=== PATIENT | male | born 1960 | race Caucasian/White ===

== ENCOUNTER 2017-10-04 15:29 | Inpatient (IN) ==
--- NOTE | 2017-10-04 15:44 | Emergency Department Note ---
Disposition Clinical Impression: NSTEMI (non-ST elevated myocardial infarction) Chest pain Qualifiers: Chest pain type: unspecified Qualified Code(s): R07.9 - Chest pain, unspecified Disposition: Admitted As Inpatient Condition: Good [facility] Provider[facility] - Forms: ED Satisfaction Letter Time of Disposition: 17:06 Chest Pain HPI - General Chief Complaint: ED Chest Pain Stated Complaint: chest pain Time Seen by Provider: 10/04/17 15:29 Source: patient, EMS Mode of arrival: EMS Limitations: no limitations Vital Signs Reviewed: Yes Nursing Notes Reviewed: Yes - History of Present Illness HPI Narrative: 56-year-old male history of smoking, pre-hypertension and diet control diabetes mellitus presents an emergency department via EMS as a transfer from the [facility] for chest pain and elevated troponin. His troponin was 0.209. His pain was relieved after a total of 2 nitro and for aspirin. Currently he is chest pain free. His symptoms started at 6 o'clock this morning as he is getting ready for work he reports a heaviness to the midsternal no radiation. A gradually worsened throughout the day. Rested not make it better. He initially thought it was indigestion needed to burp but it would return. He denies any shortness of breath, diaphoresis, nausea or vomiting. Denies any recent illness. No prior history of cardiac ischemic disease. His mother had a [place] at the age of 60. No history of cancer recent long-distance travel or history of blood clot. D dimer was performed at the [facility] that was normal 0.2 within their normal limits. EKG performed did not show acute ischemic findings. At this time will repeat a troponin and admit for NSTEMI. He denies any G.I. bleed symptoms. Pt complaint: chest pain Severity scale (1-10): 0 - Related Data Home Medications Medication Instructions Recorded Confirmed No Known Home Drugs 10/04/17 10/04/17 Allergies Allergy/AdvReac Type Severity Reaction Status Date / Time No Known Allergies Allergy Verified 10/04/17 15:29 All systems ED: reviewed and negative except as stated. Review of Systems: As Per HPI Constitutional: Denies: fever, chills, weakness Cardiovascular: Reports: chest pain Respiratory: Denies: dyspnea Gastrointestinal: Denies: abdominal pain, nausea, vomiting Musculoskeletal: Denies: back pain, neck pain Neurological: Denies: headache Chest Pain PMH - Past Medical History Medical history: Reports: diabetes Psychiatric history: Reports: no psych history - Social History Smoking Status: Current every day smoker Alcohol use: Reports: none Drug use: Reports: none Physical Exam - General Limitations: no limitations General appearance: alert, in no apparent distress, obese - Head Head exam: atraumatic, normocephalic, normal inspection - Eye Eye exam: Present: normal appearance, PERRL, EOMI - ENT ENT exam: normal exam, normal oropharynx, mucous membranes moist - Neck Neck exam: Present: normal inspection, full ROM, trachea midline - Chest Chest inspection: Present: normal inspection, symmetric chest wall rise - Respiratory Respiratory exam: Present: normal lung sounds bilaterally - Cardiovascular Cardiovascular exam: Present: regular rate, normal rhythm, normal heart sounds. Absent: systolic murmur, diastolic murmur - Expanded Cardiovascular Exam Peripheral pulses: 2+: radial (R), radial (L) - Abdominal Exam Abdominal exam: Present: soft, Non-Tender, normal bowel sounds. Absent: tenderness, distention, guarding, rebound, rigidity - Extremities Exam Extremities exam: Present: normal inspection, full ROM, normal capillary refill. Absent: tenderness, pedal edema, calf tenderness - Back Exam Back exam: Present: normal inspection, full ROM. Absent: tenderness - Neurological Exam Neurological exam: Present: alert, oriented X3, normal gait - Psychiatric Psychiatric exam: Present: normal affect, normal mood - Skin Skin exam: Present: warm, dry, intact, normal color Course Course Narrative: Patient presents [facility] concern [facility] D dimer was performed 0.2O within normal limits, low risk Wells Score 0. A repeat troponin performed here elevated 0.12. EKG performed did not show any ST elevation or depression. No acute ischemic changes. He will be admitted to the hospitalist and initiated on heparin. He denies any G.I. bleed symptoms. - Consultations Consultation #1: Spoke with on-call hospitalist igor Berry to admit for NSTEMI. No further orders at this time Time: 17:06 Vital Signs Temperature 97.9 F 10/04/17 15:30 Pulse Rate 77 10/04/17 15:30 Respiratory Rate 18 10/04/17 15:30 Blood Pressure 155/97 10/04/17 15:30 O2 Sat by Pulse Oximetry 97 10/04/17 15:30 Temperature 97.9 F 10/04/17 15:30 Pulse Rate 68 10/04/17 16:31 Respiratory Rate 16 10/04/17 16:31 Blood Pressure 157/82 10/04/17 16:31 O2 Sat by Pulse Oximetry 96 10/04/17 16:31 Oxygen Delivery Oxygen Delivery Room Air Chest Pain - MDM Narrative Medical decision making narrative: Patient was discussed with my attending physician who agrees with ED management and final disposition. They independently evaluated the patient. Please refer to their attestation to this encounter for additional information. This note was generated by [employer] voice recognition software and as a result grammatical or spelling errors may occur using this program. - Medical Records Medical records reviewed: Yes I reviewed the patient's medical records. - Lab Data Lab results reviewed: Yes I reviewed the patient's lab results. Lab Results 10/04/17 Range/Units 15:50 Troponin I 0.12 H* (< 0.04) ng/mL - EKG Data EKG attestation: Yes I reviewed and interpreted this EKG. EKG results narrative: EKG performed 1331 normal sinus rhythm 67 beats per minute, normal axis, good R wave progression, no ST elevation or depression, intervals within normal limits. Compared to prior EKG performed 09/09/2013 shows similar consistent findings. No acute ischemic changes. Heart Score - Score History: Slightly Suspicious EKG: Normal Age: 45-65 Risk Factors: Equal/Greater than 3 risk factor or history of atherosclerotic disease Troponin: Greater than 3x normal limit HEART Score Total: 5
[2017-10-04] MEDS ORDERED: *HR* Heparin 5,000 UNIT/ML VIAL IVP ONE (16:32)
[2017-10-04] MEDS ORDERED: *HR* Heparin 5,000 UNIT/ML VIAL IVP PRN (16:32)
[2017-10-04] MEDS ORDERED: Heparin 25,000 UNIT/500 ML D5W 25,000 UNIT/500 ML BAG IVC SCH (16:45)
[2017-10-04 17:04] LABS: Hemoglobin 17.6 g/dL (12.9-16.9); Mean Corpuscular HGB Conc 36.7 g/dL (31.6-35.5); Mean Corpuscular Hemoglobin 31.9 pg (28.0-33.3); Mean Platelet Volume 9.6 fL (9.4-12.4); Platelet Count 175 K/mcL (140-400); Red Blood Count 5.52 M/mcL (4.19-5.50); Red Cell Distribution Width 11.9 % (11.5-14.5)
[2017-10-04 17:37] LABS: Heparin anti-factor XA UFH 0.02 IU/mL (0.30-0.70)
[2017-10-04 17:38] LABS: Prothrombin Time 11.5 Seconds (9.4-12.1)
--- NOTE | 2017-10-04 17:52 | Emergency Department Note ---
Disposition Clinical Impression: NSTEMI (non-ST elevated myocardial infarction) Chest pain Qualifiers: Chest pain type: unspecified Qualified Code(s): R07.9 - Chest pain, unspecified Disposition: Admitted As Inpatient Condition: Good General Adult HPI - General Chief complaint: ED Chest Pain Stated complaint: chest pain Time Seen by Provider: 10/04/17 15:29 Source: patient, EMS Mode of arrival: EMS Limitations: no limitations - History of Present Illness Pain Scale: 0 - Related Data Home Medications Medication Instructions Recorded Confirmed No Known Home Drugs 10/04/17 10/04/17 Allergies Allergy/AdvReac Type Severity Reaction Status Date / Time No Known Allergies Allergy Verified 10/04/17 15:29 Constitutional: Denies: fever, chills, weakness Cardiovascular: Reports: chest pain Respiratory: Denies: dyspnea Gastrointestinal: Denies: abdominal pain, nausea, vomiting Musculoskeletal: Denies: back pain, neck pain Neurological: Denies: headache Past Medical History - Past Medical History Medical history: Reports: diabetes Psychiatric history: Reports: no psych history - Social History Smoking Status: Current every day smoker Smokeless Tobacco Status: No Alcohol use: Reports: none Drug use: Reports: none Physical Exam - General Limitations: no limitations General appearance: alert, in no apparent distress, obese Course Vital Signs Temperature 97.9 F 10/04/17 15:30 Pulse Rate 77 10/04/17 15:30 Respiratory Rate 18 10/04/17 15:30 Blood Pressure 155/97 10/04/17 15:30 O2 Sat by Pulse Oximetry 97 10/04/17 15:30 Temperature 97.9 F 10/04/17 15:30 Pulse Rate 63 10/04/17 17:49 Respiratory Rate 18 10/04/17 17:49 Blood Pressure 136/91 10/04/17 17:49 O2 Sat by Pulse Oximetry 97 10/04/17 17:49 Oxygen Delivery Oxygen Delivery Room Air Medical Decision Making - Lab Data Result diagrams: 10/04/17 15:50 Lab Results 10/04/17 10/04/17 10/04/17 Range/Units 15:50 15:50 15:50 WBC 12.9 H (4.3-11.1) K/mcL RBC 5.52 H (4.19-5.50) M/mcL Hgb 17.6 H (12.9-16.9) g/dL Hct 48.0 (37.5-50.1) % MCV 87.0 (83.0-100.0) fL MCH 31.9 (28.0-33.3) pg MCHC 36.7 H (31.6-35.5) g/dL RDW 11.9 (11.5-14.5) % Plt Count 175 (140-400) K/mcL MPV 9.6 (9.4-12.4) fL PT 11.5 (9.4-12.1) Seconds INR 1.0 Heparin Anti-Xa, Unfract 0.02 L (0.30-0.70) IU/mL Troponin I 0.12 H* (< 0.04) ng/mL Attestation Statement - Attestation Attestation: I examined this patient and my medical decision-making was reviewed with the Resident Physician. I agree with the documented findings, disposition and treatment plan as described except to the extent set forth below. 56 year old male presents to the ED with complaints of chest pain that now has resolved and [facility] and likle NSTEMI. we have repeated labs here today and it appears that he does have an elevated troponin. WE will start heparin therpy now and admit to medicine
[2017-10-04] MEDS ORDERED: Naloxone 0.4 MG/ML INJ IVP PRN ×2 (18:04→18:11)
--- NOTE | 2017-10-04 18:16 | Internal Med History&Physical ---
<Arlette Carver O - Last Filed: 10/04/17 20:34> Date of Encounter: 10/04/17 Internal Medicine - H&P: HPI History of present illness: Mr. Moran is a 56 year old male Internal Medicine - H&P: Meds No Known Home Drugs 10/04/17 [History] 3 Allergy/AdvReac Type Severity Reaction Status Date / Time No Known Allergies Allergy Verified 10/04/17 15:29 All Systems PM: A 10-system review of systems was performed and is negative for pertinent findings except as documented above in the HPI. - Constitutional Vitals: Temp Pulse Resp BP Pulse Ox 97.9 F 63 16 148/84 96 10/04/17 15:30 10/04/17 20:30 10/04/17 20:01 10/04/17 20:30 10/04/17 20:12 - Head Head exam: Present: atraumatic, normocephalic - Eye Eye exam: Present: PERRL, conjuntiva pink, sclera anicteric Pupils: Present: PERRL - Neck Neck exam general surgery: Present: supple, trachea midline. Absent: lymphadenopathy - Respiratory Respiratory exam: Present: CTAB. Absent: accessory muscle use, rales, rhonchi, wheezes - Cardiovascular Cardiovascular exam: Present: RRR, +S1, +S2. Absent: diastolic murmur, gallop, rubs, systolic murmur - GI/Abdominal GI/Abdominal exam: Present: normal bowel sounds, soft, no peritoneal signs. Absent: distended, tenderness - Extremities Exam Extremities exam: Present: warm, radial pulses palpable and symmetrical. Absent : calf tenderness, cyanotic, pedal edema - Neurological Exam Neurological exam: Present: CN II-XII intact, oriented X3, no focal deficits. Absent: pronater drift, facial droop, speech deficit - Skin Skin exam: Present: dry, intact Internal Med - H&P Results - Labs CBC & Chem 7: 10/04/17 15:50 - Attending Attestation I performed a history and physical exam of the patient and discussed his management with the OUTSIDE REPAIRER SPECIAL. I reviewed the OUTSIDE REPAIRER SPECIAL's note and agree with the documented findings and plan of care. - Time Spent With Patient Total time spent is greater than 50% in coordination of care (as documented) at patient's floor/unit and/or counseling patient: <Earlene Gustafson - Last Filed: 10/04/17 22:21> Date of Encounter: 10/04/17 Time of Encounter: 18:16 Internal Medicine - H&P: HPI Chief complaint: Chest Pain Admitted From: Hospital to Hospital Transfer Plans for Post Hospital Care: Home History of present illness: Mr. Moran is a 56 year old male with history of pre-htn, hld, type II DM, and low back pain. The patient is a transfer from the [facility] with chest pain and ultimately + for NSTEMI. Trop was 0.209. Patient was started on heparin drip. EKG was SR with rate 60-70's. Patient denies any heart issues in the past. Patient [place], and felt like he was getting some cold symptoms. He went to work this morning and began to have chest pain, which worsened around 10-11am, so he decided to go to the [facility]. He indicated that he felt sluggish at that time. Patient mother with [place] at age 60 yo. He reported she later as a result of her HF and DM. The patient's brother had a [place] at age 68yo and . Trop is down to 0.12. The patient indicates that he has never had any cardiac workup in the past except for a EKG , 5 years ago when he was diagnosed with DM. Will get echo in am, continue serial trops. Patient denies any medication use. He stopped taking metformin at least 2 years ago, after he made lifestyle changes. The patient was also marginally hypertensive. Bp was 156/85. Per the [facility] notes, it appears the patient was due to start lisinpril. Spoke with Dr. Taylor, and will continue heparin drip, start nitro drip/titrate to chest pain, start daily baby ASA, and get echocardiogram. WBC count is 12.9. The CXR at [facility] was negative for acute disease, however he did have some cold symptoms. Lungs clear. Past Med Surg Social Fam HX - Past Medical History Medical history: diabetes Psychiatric history: no psych history - Past Surgical History Additional surgical history: L knee reconstruction - Social History Smoking Status: Current every day smoker Smokeless Tobacco Status: No Alcohol use: none Drug use: none - Family History Mother Age at : 72 Cause of : CHF, DM Hx Family Neurologic Disorders: Yes (CVA) Father Age at : 70 Cause of : Cancer All Systems PM: A 10-system review of systems was performed and is negative for pertinent findings except as documented above in the HPI. - Constitutional Constitutional: fatigue (At the fair yesterday), no chills, no fever(s), no night sweats - EENT Eyes: no change in vision, no discharge, no pain, no photophobia Ears: no ear discharge, no ear pain, no tinnitus Nose, mouth and throat: no dysphagia, no nasal discharge, no neck pain, no sore throat - Cardiovascular Cardiovascular ROS IM: chest pain, dyspnea, no diaphoresis, no lightheadedness, no palpitations, no syncope - Respiratory Respiratory: cough, no dyspnea, no wheezing, no excessive phlegm production - Gastrointestinal Gastrointestinal: no abdominal pain, no diarrhea, no hematemesis, no hematochezia, no melena, no nausea, no vomiting - Musculoskeletal Musculoskeletal ROS IM: no numbness, no tingling - Integumentary Integumentary IM: no rash, no unusual bruising - Neurological Neurological ROS: no confusion, no convulsions, no focal weakness, no numbness, no tingling, no tremor(s) - Hematologic/Lymphatic Hematologic/Lymphatic: no easy bruising - Constitutional Vitals: Temp Pulse Resp BP Pulse Ox 97.9 F 63 18 136/91 97 10/04/17 15:30 10/04/17 17:49 10/04/17 17:49 10/04/17 17:49 10/04/17 17:49 General appearance: Present: A&O X 3, answers questions appropriately - Head Head exam: Present: atraumatic, normocephalic - Eye Eye exam: Present: PERRL, conjuntiva pink, sclera anicteric Pupils: Present: PERRL - Neck Neck exam general surgery: Present: supple, trachea midline. Absent: lymphadenopathy - Respiratory Respiratory exam: Present: CTAB. Absent: accessory muscle use, rales, rhonchi, wheezes - Cardiovascular Cardiovascular exam: Present: RRR, +S1, +S2. Absent: diastolic murmur, gallop, rubs, systolic murmur - GI/Abdominal GI/Abdominal exam: Present: normal bowel sounds, soft, no peritoneal signs. Absent: distended, tenderness - Extremities Exam Extremities exam: Present: warm, radial pulses palpable and symmetrical. Absent : calf tenderness, cyanotic, pedal edema - Neurological Exam Neurological exam: Present: CN II-XII intact, oriented X3, no focal deficits. Absent: pronater drift, facial droop, speech deficit - Skin Skin exam: Present: dry, intact Internal Med - H&P Results - Labs CBC & Chem 7: 10/04/17 15:50 - Assessment and plan (1) NSTEMI (non-ST elevated myocardial infarction) Current Visit: Yes Status: Acute Assessment and plan: Cardiology consult. Will make patient npo after mn in case of continued chest pain. Serial cardiac enzymes Cardiac monitoring Daily labs Heparin drip Nitroglycerin drip FLP in am (2) Chest pain Current Visit: Yes Status: Acute Assessment and plan: Cardiology consult Serial cardiac enzymes Cardiac monitoring Daily labs Heparin drip Nitroglycerin drip Qualifiers: Chest pain type: unspecified Qualified Code(s): R07.9 - Chest pain, unspecified (3) Pre-hypertension Current Visit: Yes Status: Acute Assessment and plan: Patient was scheduled to start lisinopril at the [facility], but never implemented. Cardiology was consulted-Will start nitroglycerin drip d/t continued dull CP and will likely control the bp also (4) Type II diabetes mellitus Current Visit: Yes Status: Acute Assessment and plan: Patient npo after midnight. Will change accu-checks to q6h after midnight with mild humalog sliding scale coverage Monitor labs Hgb A1C in am Qualifiers: Diabetes mellitus joint terminal attack controller insulin use: without joint terminal attack controller use Diabetes mellitus complication status: with unspecified complications Qualified Code(s) : E11.8 - Type 2 diabetes mellitus with unspecified complications - Time Spent With Patient Total time spent is greater than 50% in coordination of care (as documented) at patient's floor/unit and/or counseling patient: 25 - 35 minutes
[2017-10-04] MEDS ORDERED: Nitroglycerin 25 MG/250 ML INFUS..BTL IVC SCH (19:00)
[2017-10-04] MEDS ORDERED: Dextrose Gel 15 GM/37.5 ML TUBE PO PRN ×2 (19:41)
[2017-10-04] MEDS ORDERED: *HR* Dextrose 50 % in Water (Syg) 50 ML SYRINGE IVP PRN (19:41)
[2017-10-04] MEDS ORDERED: D5% in Water 1,000 ML IVC PRN (19:41)
[2017-10-05 00:58] LABS: BUN/Creatinine Ratio 21 (6-26); Blood Urea Nitrogen 16 mg/dL (6-20); Calcium 9.1 mg/dL (8.6-10.3); Carbon Dioxide 24 mEq/L (23-29); Chloride 100 mEq/L (98-107); Chol/HDL Ratio 6.2 (0-4.9); Cholesterol 161 mg/dL (< 200); Glucose 283 mg/dL (70-105); HDL Cholesterol 26 mg/dL (40-59); LDL Cholesterol,Calculated 76 mg/dL (0-99); Magnesium 1.9 mg/dL (1.6-2.6); Osmolality,Calculated 287 (280-300); Potassium 3.8 mEq/L (3.5-5.1); Sodium 133 mEq/L (136-145); Triglycerides 295 mg/dL (< 150); eGFR For Non-African Americans > 60 (> 60)
[2017-10-05] MEDS: *HR* Heparin 5,000 UNIT/ML VIAL IVP PRN ×2 (01:06→09:05)
[2017-10-05] MEDS: Insulin LISPRO 300 UNITS/3 ML VIAL SQ SCH ×3 (05:54→18:49)
--- NOTE | 2017-10-05 08:03 | Electrocardiograph Report ---
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
[2017-10-05 08:07] LABS: Estimated Average Glucose 197 mg/dl; Hemoglobin A1C 8.5 %
--- NOTE | 2017-10-05 08:12 | Cardiology Consult Note ---
Date of Encounter: 10/05/17 Time of Encounter: 08:10 Assessment and Plan (1) NSTEMI (non-ST elevated myocardial infarction) Current Visit: Yes Status: Acute Per Cardiology: Troponins 0.12, 1.67, 2.99. On aspirin, statin, heparin drip, nitro drip. Currently chest pain-free. Echo pending. Discussed and reviewed with Dr. Arevalo and Dr. Bearden. Patient agreeable for left heart catheterization today. Further recommendations pending after echo and catheterization. Cardiac rehabilitation placed. We will attempt to add low-dose beta gina. Discussion w patient/family: The assessment and plan as outlined above was discussed with the patient who expressed understanding and agreement. All questions were answered. Thank you for involving us in the care of your patient. Please call with any questions. History of Present Illness Consult date: 10/05/17 Consult reason: NSTEMI Chief complaint: CP History of present illness: Mr. Moran is a 56 [facility] with relevant past medical history of possible hypertension, hyperlipidemia, diet controlled DM 2, and nicotine abuse. Cardiology consult for non-STEMI. Patient reports 2 days ago developed midsternal chest heaviness with walking around at local fair. He reports at time he was somewhat stressed trying to find a person who he was walking around with. He reports symptoms lasted for few minutes and subsided. He reports symptoms reoccurred the next day with left -sided chest heaviness/stabbing sensation with accompanying nausea. He reports symptoms lasted for a few minutes and eventually subsided with rest. He denies any other symptoms that occurred at this time. Does report over the past few weeks mild increase in overall fatigue from baseline. He does indicate he smokes about one pack per day for the past 28 years. Family history with mother with [place] in her 60s. Patient denies any previous history of CAD-- has never had cardiac evaluation. Past Med Surg Social Fam HX - Past Medical History Attestation: Yes The following information was validated with the patient. Source: patient, old records reviewed Medical history: diabetes Psychiatric history: no psych history - Past Surgical History Additional surgical history: L knee reconstruction - Social History Smoking Status: Current every day smoker Packs per day: 1 Smokeless Tobacco Status: No Alcohol use: none Drug use: none - Family History Mother Age at : 72 Cause of : CHF, DM Hx Family Neurologic Disorders: Yes (CVA) Father Age at : 70 Cause of : Cancer Medications and Allergies No Known Home Drugs 10/04/17 [History] 3 Allergy/AdvReac Type Severity Reaction Status Date / Time No Known Allergies Allergy Verified 10/04/17 15:29 All Systems Review: The remainder of the systems were reviewed and are negative - Constitutional Constitutional: fatigue - Cardiovascular Cardiovascular: as per HPI, chest pain with exertion Physical Examination Vital Signs, Last 4 Hours Temp Pulse Resp BP Pulse Ox 10/05/17 07:10 65 15 118/70 96 10/05/17 04:14 98.2 F 67 16 116/70 94 General: Conversant, No Apparent Distress HEENT: Atraumatic, Normocephaly, Mucus Membranes Moist Neck: No JVD, Normal carotid pulses Cardiac: Reg Rate and Rhythm, Normal S1 and S2, No Murmur Lungs: Normal Breath Sounds, No Wheeze, Rales, Rhonchi Neuro: Alert and responsive, No focal deficits noted Abdomen: Soft, Non-Tender Skin: No rashes noted on visualized skin Musculoskeletal: No Chest Wall Tenderness Extremities: No Clubbing, No Cyanosis, No Edema, Normal Pulses Results 10/04/17 15:50 10/05/17 00:09 Lab Results Laboratory Tests 10/04/17 10/04/17 10/04/17 15:50 15:50 15:50 Hgb 17.6 H Hct 48.0 INR 1.0 Creatinine Est GFR (Non-Af Amer) Troponin I 0.12 H* LDL Cholesterol, Calc 10/05/17 10/05/17 10/05/17 00:09 00:09 05:24 Hgb Hct INR Creatinine 0.77 Est GFR (Non-Af Amer) > 60 Troponin I 1.67 H* 2.99 H* LDL Cholesterol, Calc 76 Active Medications Aspirin (Aspirin) 81 mg PO DAILY VIRGILIO Stop: 04/06/18 09:01 Atorvastatin Calcium (Lipitor) 20 mg PO HS VIRGILIO Stop: 04/05/18 21:01 Last Admin: 10/04/17 20:05 Dose: 20 mg Dextrose/Water (Dextrose 50% (Syg)) 25 ml IVP AD PRN PRN Reason: Hypoglycemia Stop: 04/05/18 19:42 Glucagon (Glucagen) 1 mg IM ONCE PRN PRN Reason: Hypoglycemia Stop: 04/05/18 19:42 Glucose (Gluctose) 15 gm PO ONCE PRN PRN Reason: Hypoglycemia Stop: 04/05/18 19:42 Glucose (Gluctose) 30 gm PO ONCE PRN PRN Reason: Hypoglycemia Stop: 04/05/18 19:42 Heparin Sodium (Porcine) (Heparin) 4,000 unit IVP Q6HR PRN PRN Reason: SEE COMMENTS Stop: 04/05/18 16:33 Heparin Sodium (Porcine) (Heparin) 2,000 unit IVP Q6H PRN PRN Reason: SEE COMMENTS Stop: 04/05/18 16:33 Last Admin: 10/05/17 01:06 Dose: 2,000 unit Heparin Sodium/Dextrose (Heparin 25,000 Unit/500 Ml D5w) 25,000 unit in 500 mls @ 19.996 mls/hr IVC .Q24H VIRGILIO; 10.3 UNIT/KG/HR PRN Reason: Protocol Stop: 04/05/18 16:46 Last Titration: 10/05/17 01:07 Dose: 12.3 unit/kg/hr, 23.879 mls/hr Nitroglycerin (Nitroglycerin Premix 25 Mg/250 Ml) 25 mg in 250 mls @ 3 mls/hr IVC .Q24H VIRGILIO; 5 MCG/MIN PRN Reason: Protocol Stop: 04/05/18 19:01 Last Titration: 10/04/17 22:13 Dose: 25 mcg/min, 15 mls/hr Dextrose (Dextrose 5%) 1,000 mls @ 100 mls/hr IVC .Q10H PRN PRN Reason: HYPOGLYCEMIA Stop: 04/05/18 19:42 Insulin Human Lispro (Humalog) 0 units SQ Q6HR VIRGILIO PRN Reason: Protocol Stop: 04/06/18 00:01 Last Admin: 10/05/17 05:54 Dose: Not Given Naloxone HCl (Narcan) 0.4 mg IVP Q2MIN PRN PRN Reason: SEE COMMENTS Stop: 04/05/18 18:12 - Imaging and Cardiology Echo: pending Cardiac cath: pending - EKG Interpretation EKG results cardiology: personally reviewed (Sinus rhythm 60), normal ECG, sinus rhythm, no diagnostic ischemia Consult Discharge Plan - Plan [facility]errals: [facility] [Primary Care Provider[facility] -
[2017-10-05] MEDS: Aspirin 81 MG TAB.CHEW PO SCH (09:05)
--- NOTE | 2017-10-05 09:05 | Pre-Sedation Evaluation ---
Pre-sedation evaluation - Pre-sedation checklist Date of procedure: 10/05/17 Procedure: LHC Recent Vitals: Last Vital Signs Temp 98.2 F 10/05/17 04:14 Pulse 65 10/05/17 07:10 Resp 15 10/05/17 07:10 BP 118/70 10/05/17 07:10 Pulse Ox 96 10/05/17 07:10 ASA Classification *see protocol: CLASS II-Mild systemic disease Cardiac Registry (Cardio Only) - Functional Capacity Functional Capacity: >=4 METS with symptoms - Clincal Frailty Scale Clinical Frailty Scale: Vulnerable
[2017-10-05] MEDS ORDERED: *HR* Heparin 10,000 UNIT/10 ML VIAL ONE (09:52)
[2017-10-05] MEDS ORDERED: ISOVUE-370 200 ML INFUS..BTL IV ONE ×2 (09:52→10:58)
[2017-10-05] MEDS ORDERED: Heparin 1,000 UNITS/500 mL 500 ML ONE (09:52)
[2017-10-05] MEDS ORDERED: 0.9 % Sodium Chloride 1,000 ML ONE ×2 (09:52→10:01)
[2017-10-05] MEDS ORDERED: Nitroglycerin 1,000 MCG/10 ML VIAL IV ONE (09:53)
[2017-10-05] MEDS ORDERED: *HR* Midazolam HCl 2 MG/2 ML VIAL ONE (10:00)
[2017-10-05] MEDS ORDERED: *HR* FentaNYL (PF) 100 MCG/2 ML VIAL ONE (10:01)
[2017-10-05] MEDS ORDERED: Tirofiban 12.5 MG/250ML 12.5 MG/250 ML BAG ONE (10:53)
[2017-10-05] MEDS ORDERED: *HR* Ticagrelor 90 MG TABLET ONE (11:32)
[2017-10-05] MEDS ORDERED: Tirofiban 12.5 MG/250ML 12.5 MG/250 ML BAG IVC SCH (11:45)
--- NOTE | 2017-10-05 11:59 | Invasive Diagnostic Lab Proc ---
Name: Jaylan Moran Date of Study: 10/05/2017 Date: 1960 Ht: 68.9in Medical Record#: [id number] Age: 56 Wt: 218.26lb Gender: Male BSA: 2.14 Order #: [id number] BMI: 32.33 Physicians Procedure Physician: Brandan Bearden MD Referring MD: [facility] Referring MD: Staff Name Position Time In Rose Leos RT (R) Monitor 10:15 AM Live Leos RT (R) Scrub 10:15 AM Yuval Hutchison RN Church History Professor 10:15 AM Indications Indication Non-Stemi Procedures Performed Procedure L HRT ARTERY/VENTRICLE ANGIO PRQ CARD LOUISE STENT W/ANGIO 1 VSL Pre-Procedure Checklist Informed consent is complete signed and on chart. H&P is on chart. ID band is on and ID verified with patient. Patient NPO for procedure The procedure was described for the patient and questions were answered. Blood Pressure: 118/70 ECG is on chart. Rhythm: NSR Plan of Care Patient will tolerate the procedure without complications. Adequate level of comfort will be maintained. Hemodynamics will remain stable Patient will recover from procedure without complications. Respiratory function will be maintained. Cardiac rhythm will remain stable. Patient temperature will be maintained. Patient and/or family have verbalized understanding of the procedure. Patient Education Chief Complaint/Reason for Test: Cardiac Cath Developmental Category: Adult (18-64 years) Developmentally Appropriate for Age: Yes Learning Barriers: None Education Needs: Procedure Education Method: Verbal Information Taught: Cardiac Cath Educational Evaluation: Able to repeat information Intravenous Access Time IV Size Location DC'd Fluid/Drip Rate Units RN 09:56 AM 20g 1 /" Patent On Arrival Rt Antecubital 0.9NaCl 25 ml/hr Lake Robertson RN Allergies No Known Allergies Vital Signs Time BP (mmHg) HR (bpm) O2 Sat. RR (bpm) LOC 118 / 70 65 96 % 15 5 = Fully awake and oriented or at pre-proc level 10:16 AM / % 5 = Fully awake and oriented or at pre-proc level 10:16 AM / % 4 = Oriented but drowsy 10:33 AM / % 4 = Oriented but drowsy 10:48 AM / % 4 = Oriented but drowsy 11:03 AM / % 4 = Oriented but drowsy 10:19 AM 133 / 79 60 99 % 12 Procedural Medications Time Medication Dose Units Method Given By 10:26 AM Versed 1 mg Intravenous Yuval Hutchison RN 10:26 AM Fentanyl 50 mcg Intravenous Yuval Hutchison RN 10:36 AM Lidocaine 2% 20 ml Subcutaneous Brandan Bearden MD 10:41 AM Heparin 1000 units Intravenous Jonathan Bearden MD 10:56 AM Aggrastat Bolus: 50 ml Intravenous Yuval Hutchison RN 10:56 AM Aggrastat 12.5mg/250ml 18 ml Intravenous Yuval Hutchison RN 10:56 AM Heparin 5000 units Intravenous Yuval Hutchison RN 11:14 AM Nitroglycerin 100 mcg Intraarterial Jonathan Bearden MD 11:23 AM Nitroglycerin 200 mcg Intraarterial Jonathan Bearden MD 11:25 AM Nitroglycerin 200 mcg Intraarterial Jonathan Bearden MD 11:34 AM Brilinta 180 mg Orally Yuval Hutchison RN ASA Classification: CLASS II- Mild systemic disease (i.e. well-controlled diabetes, hypertension, asthma, cigarette smoking) Magda Score Preprocedure Postprocedure Activity 2- Moves 4 extremities sustained head lift Activity 2- Moves 4 extremities sustained head lift Circulation 2- SBP +/= 20 points of pre-anesthetic level Circulation 2- SBP +/= 20 points of pre-anesthetic level Consciousness 2- Awake and alert oriented x 3 Consciousness 2- Awake and alert oriented x 3 O2 Saturation 2- Able to maintain O2 satruation of 92% on room air O2 Saturation 2- Able to maintain O2 satruation of 92% on room air Respiratory 2- Able to deep breathe and cough well Respiratory 2- Able to deep breathe and cough well Total Score 10 Total Score 10 Contrast Agent: Isovue Diagnostic Contrast: 243 ml Total Contrast: 243 ml Fluoro Dose: 58449 mGy Activated Clotting Time Time Seconds to Clot 10:57 AM 139 Procedure Log Time Note Enter By 10:15 AM 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 twilson 10:15 AM Procedure start 10:15 twilson 10:15 AM CathStat 10:15 AM Rose Leos RT (R) Position: Monitor Time in: 10:15 twilson 10:15 AM Live Leos RT (R) Position: Scrub Time in: 10:15 twilson 10:15 AM Patient charges- Angio tray pack, Navilyst 3mm J, Pulse Oximetry and ACIST tubing and transducer twilson 10:15 AM Yuval Hutchison RN Position: Church History Professor Time in: 10:15 twilson 10:15 AM Case Delayed no twilson 10:16 AM Time: 10:16 Patient comfortable and pain free: Yes twilson 10:16 AM Time: 10:16LOC: 5 = Fully awake and oriented or at pre-proc level twilson 10:18 AM Recorded ECG: HR=62 Condition=Condition 1 10:18 AM NIBP STAT measurement started. 10:19 AM HR=60 bpm, URPM=283/79 mmhg, SpO2=99.0 %, Resp=12 B/min 10:19 AM ETC02 monitor on patient. twilson 10:20 AM Hair removed from procedure site in procedure lab using clippers. Bilateral groin prepped with Chloraprep by Lake Robertson RN, then patient was draped. Skin intact. twilson 10:24 AM Pressure channel 1 zeroed. 10:25 AM ASA Class CLASS II- Mild systemic disease (i.e. well-controlled diabetes, hypertension, asthma, cigarette smoking) twilson 10:26 AM Time: 10:26 Versed 1 mg Intravenous Given by Yuval Hutchison RN twilson 10:27 AM Time: 10:26 Fentanyl 50 mcg Intravenous Given by Yuval Hutchison RN twilson 10:33 AM Time: 10:16LOC: 4 = Oriented but drowsy twilson 10:33 AM Time: 10:16 Patient comfortable and pain free: Yes twilson 10:35 AM Time out performed according to hospital policy twilson 10:37 AM Time: 10:36 20 ml Lidocaine 2% to right groin Subcutaneous Given by Brandan Bearden MD twilson 10:37 AM Micro-Introducer Kit utilized for sheath placement twilson 10:37 AM 4ml contrast hand injection to right groin by Dr. Bearden. twilson 10:37 AM Access obtained by percutaneous puncture. 6Fr 10cm Terumo [place] sheath placed in right Femoral artery. [id number] twilson 10:38 AM 5Fr FR 4 catheter inserted over the wire DNC twilson 10:39 AM Wire removed twilson 10:41 AM Time: 10:41 Heparin 1000 units Intravenous Given by Jonathan Bearden MD twilson 10:41 AM 0.035 180cm Glidewire wire [id number] twilson 10:42 AM Wire removed, intact. twilson 10:43 AM Recorded Pressure: Ao, HR=71, Condition=Condition 1 (Aorta) Ao 111/78/93 10:44 AM Recorded Pressure: Ao, HR=77, Condition=Condition 1 (Aorta) Ao 104/76/89 10:44 AM RCA angiography performed in multiple views. twilson 10:44 AM 0.035 260cm Navilyst 3mm J wire [id number] twilson 10:45 AM Catheter removed twilson 10:45 AM 5Fr FL 4 catheter inserted over the wire DNC twilson 10:46 AM Wire removed twilson 10:46 AM LCA angiography performed in multiple views. twilson 10:46 AM Recorded Pressure: Ao, HR=76, Condition=Condition 1 (Aorta) Ao 114/77/93 10:47 AM Wire reinserted. twilson 10:48 AM Catheter removed twilson 10:48 AM Time: 10:33LOC: 4 = Oriented but drowsy twilson 10:48 AM Time: 10:33 Patient comfortable and pain free: Yes twilson 10:49 AM 5Fr Pigtail catheter inserted over the wire [facility] twilson 10:49 AM Catheter selectively placed in left ventricle twilson 10:49 AM Pressure channel 1 zeroed. 10:49 AM Recorded Pressure: LV, HR=76, Condition=Condition 1 (Left Ventricle) LV 113/13/13 10:50 AM Recorded Pressure: LV, Ao, HR=75, Condition=Condition 1 (Left Ventricle) LV 120/14/15, (Aorta) Ao 106/61/82 10:51 AM Wire removed twilson 10:51 AM Pressures only. No LV injection. twilson 10:51 AM Wire reinserted. twilson 10:51 AM Catheter removed twilson 10:52 AM 6Fr JR 4 Cordis guide catheter was used to cannulate the PCI vessel successfully. reused? No twilson 10:53 AM Inflation device was opened. twilson 10:53 AM PCI lesion in Mid RCA. Pre Stenosis: 70 Pre IRIS Flow: 1: Slow Penetration without Perfusion twilson 10:53 AM PCI lesion in Distal RCA. Pre Stenosis: 99 Pre IRIS Flow: 1: Slow Penetration without Perfusion twilson 10:54 AM PCI Status Urgent twilson 10:54 AM Right Coronary, Right Posterior Descending Arteries with Right Posterolateral and Acute Marginal branches with 99 % stenosis. If graft is supplying this area, 0 % stenosis twilson 10:54 AM Coronary Dominance: right twilson 10:55 AM Recorded Pressure: Ao, HR=74, Condition=Condition 1 (Aorta) Ao 124/65/89 10:56 AM Time: 10:56 Aggrastat Bolus: 50 ml Intravenous Given by Yuval Hutchison RN Cooper pump twilson 10:56 AM Time: 10:56 Aggrastat 12.5mg/250ml 18 ml Intravenous Given by Yuvla Hutchison RN Cooper pump twilson 10:56 AM Time: 10:56 Heparin 5000 units Intravenous Given by Yuval Hutchison RN twilson 10:57 AM .014 [employer] [place] 190cm guide wire across target lesion- successful. reused? No twilson 10:57 AM At 10:57 the ACT was 139 seconds. twilson 10:58 AM Recorded Pressure: Ao, HR=77, Condition=Condition 1 (Aorta) Ao 116/62/83 11:00 AM 2.0 mm x 12 mm Emerge Monorail balloon across target lesion- successful. reused? No twilson 11:01 AM Balloon inflated @ 6 prakash for 9 seconds twilson 11:02 AM Balloon inflated @ 10 prakash for 16 seconds twilson 11:02 AM Balloon inflated @ 10 prakash for 25 seconds twilson 11:03 AM Time: 10:48 Patient comfortable and pain free: Yes twilson 11:03 AM Time: 10:48LOC: 4 = Oriented but drowsy twilson 11:03 AM Balloon inflated @ 6 prakash for 10 seconds twilson 11:04 AM Balloon inflated @ 6 prakash for 19 seconds twilson 11:04 AM Balloon inflated @ 10 prakash for 30 seconds twilson 11:05 AM Balloon catheter removed intact. twilson 11:05 AM Recorded Pressure: Ao, HR=75, Condition=Condition 1 (Aorta) Ao 100/50/72 11:07 AM .014 [employer] [place] 190cm guide wire across target lesion- successful. reused? No twilson 11:09 AM Recorded Pressure: Ao, HR=68, Condition=Condition 1 (Aorta) Ao 106/59/77 11:09 AM Recorded Pressure: Ao, HR=71, Condition=Condition 1 (Aorta) Ao 105/59/78 11:10 AM 2.25mm x 12mm Synergy drug-eluting stent across target lesion- successful Lot #[id number] twilson 11:12 AM Stent deployed @ 11 prakash for 12 seconds twilson 11:12 AM Stent balloon reinflated @ 16 prakash for 12 seconds twilson 11:13 AM Stent balloon reinflated @ 18 prakash for 11 seconds twilson 11:13 AM Stent delivery system removed intact. twilson 11:15 AM Time: 11:14 Nitroglycerin 100 mcg Intraarterial Given by Jonathan Bearden MD twilson 11:17 AM 2.5mm x 8mm Synergy drug-eluting stent across target lesion- successful Lot #[id number] twilson 11:18 AM Time: 11:03LOC: 4 = Oriented but drowsy twilson 11:18 AM Time: 11:03 Patient comfortable and pain free: Yes twilson 11:21 AM Stent deployed @ 10 prakash for 18 seconds twilson 11:22 AM Stent balloon reinflated @ 11 prakash for 13 seconds twilson 11:22 AM Stent delivery system removed intact. twilson 11:23 AM Time: 11:23 Nitroglycerin 200 mcg Intraarterial Given by Jonathan Bearden MD twilson 11:24 AM Recorded Pressure: Ao, HR=78, Condition=Condition 1 (Aorta) Ao 106/64/82 11:25 AM wires removed twilson 11:25 AM Time: 11:25 Nitroglycerin 200 mcg Intraarterial Given by Jonathan Bearden MD twilson 11:27 AM Guide catheter removed intact. twilson 11:28 AM Procedure completed at 11:28 10/05/2017 twilson 11:28 AM Did you address IRIS flow and Dominance? Yes twilson 11:29 AM Sign out completed: Radiation Dose 1909.27 mGy, 45659. cGy/cm2 Fluoro Time: 18.5 Isovue 370 - 200ml contrast 243 ml given by Brandan Bearden MD. Complications: NoneCardiac Rehab Consult needed: YesConfirmed administered medications: No twilson 11:29 AM Isovue 370 - 200ml,2 Bottle(s) used. twilson 11:29 AM Arterial sheath pulled, Angio-seal closure device used and was Successful [id number] S/N. twilson 11:29 AM Estimated Blood Loss: less than 20cc twilson 11:29 AM Post ECG NSR twilson 11:29 AM Post Blood Pressure 133/79 twilson 11:30 AM 11:30 Post Pulses Bilateral DP & PT 1+ twilson 11:30 AM Information taught Cardiac Cath, PCI, and Angioseal twilson 11:30 AM Education needs Procedure, Plan of Care, and Responsibilities of Patient in Care twilson 11:30 AM Learning barriers :None twilson 11:30 AM Education Methods Verbal twilson 11:30 AM Education evaluation Able to repeat information twilson 11:30 AM Site status No bleeding/hematoma - Rt Groin as reported by Live Leos RT (R) at 11:30 twilson 11:30 AM Opsite applied twilson 11:30 AM Delay to floor No twilson 11:31 AM Patient out of room: 11:30 twilson 11:31 AM pt has no family at this time twilson 11:31 AM Complications: None twilson 11:34 AM Time: 11:34 Brilinta 180 mg Orally Given by Yuval Hutchison RN twilson 11:40 AM Report given to Diana VIEIRA Pt taken to E Room #26. 11:40 twilson 11:44 AM Lesion found in Proximal RCA. Pre Stenosis: 50 Pre IRIS Flow: twilson 11:45 AM Lesion found in Distal Circumflex. Pre Stenosis: 50 Pre IRIS Flow: twilson 11:45 AM Lesion found in Mid LAD. Pre Stenosis: 70 Pre IRIS Flow: twilson 11:45 AM Lesion found in Distal LAD. Pre Stenosis: 90 Pre IRIS Flow: twilson 11:45 AM Left Main Coronary Artery with 0% stenosis twilson 11:45 AM Proximal Left Anterior Descending Coronary Artery with 0% stenosis. If graft is supplying this territory, 0 % stenosis. twilson 11:45 AM Mid/Distal Left Anterior Descending Coronary Artery and diagonal branches with 90% stenosis. If graft is supplying this area, 0 % stenosis twilson 11:45 AM Circumflex, Obtuse Marginal, Left Posterior Descending, and Left Posterolateral Coronary Arteries with 50 % stenosis. If graft is supplying this area, 0 % stenosis twilson 11:45 AM Right Coronary, Right Posterior Descending Arteries with Right Posterolateral and Acute Marginal branches with 99 % stenosis. If graft is supplying this area, 0 % stenosis twilson 11:45 AM Ramus with 0% stenosis. If graft is supplying this area, 0 % stenosis twilson Complications Complication None None Hemodynamics Pressures Site Systolic/A Wave Diastolic/V Wave Mean AO 111 78 93 AO 104 76 89 AO 114 77 93 LV 113 13 13 LV 120 14 15 AO 106 61 82 AO 124 65 89 AO 116 62 83 AO 100 50 72 AO 106 59 77 AO 105 59 78 AO 106 64 82 Post Procedure Information Blood Pressure: 133/79 mmHg Rhythm: NSR Post procedural instructions were given Closure Device Time Device Success/Fail 10/05/2017 11:36:00 AM Angio-Seal VIP Successful Site Checks Time Location Status Staff Sheath In? Note 11:30 AM Rt Groin No bleeding/hematoma Live Leos RT (R) Pulses Time Site Pre-Procedure Post-Procedure Note 10/05/2017 9:56:00 AM Bilateral DP & PT 1+ 10/05/2017 9:56:00 AM Bilateral radial 2+ 11:30:00 AM Bilateral DP & PT 1+ Updated by Rose Leos RT (R) on 10/05/2017 11:50:11 AM electronically signed on 10/05/2017 11:51:30 AM with status of Final
--- NOTE | 2017-10-05 16:19 | Electrocardiograph Report ---
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
--- NOTE | 2017-10-05 18:06 | Internal Med Progress Note ---
Hospitalist Progress Note - Encounter Date of Encounter: 10/05/17 Time of Encounter: 18:04 - Subjective Interval History: Patient had no acute events overnight. He is POD #0 s/p [facility] with severe two vessel CAD and PCI of mid and distal RCA. Plan for staged PCI of mid LAD in 2- 4 weeks if symptom-free. He states that chest pain is resolved. He denies fever, chills, chest pain, SOB, nausea, vomiting, or abdominal pain. He has no complaints at this time. - Exam Vitals: Temp Pulse Resp BP Pulse Ox 98.2 F 71 16 136/75 98 10/05/17 04:14 10/05/17 15:45 10/05/17 15:45 10/05/17 15:45 10/05/17 15:45 Exam: Gen - Awake, alert, no acute distress HEENT - NCAT, PERRLA, EOMI, hearing grossly intact, oropharynx benign CV - RRR, normal S1 and S2, no M/R/G, no BLE edema Resp - Normal WOB, CTAB, no W/R/R GI - Soft, NT/ND, no masses, normal bowel sounds, no HSP Skin - Warm, dry, no rashes/lesions/ulcers Psych - Normal mood and affect, no depression or anxiety - Assessment and Plan (1) NSTEMI (non-ST elevated myocardial infarction) Current Visit: Yes Status: Acute Assessment and Plan: Cardiology consulted; appreciate input. POD #0 s/p [facility] with severe two vessel CAD and PCI of mid and distal RCA. Plan for staged PCI of mid LAD in 2-4 weeks if symptom-free. Started low-dose metoprolol today. Continue brillinta, aspirin, and lipitor. Monitor on telemetry. Will await further recommendations from cardiology. (2) Pre-hypertension Current Visit: Yes Status: Acute Assessment and Plan: Now normotensive. Beta gina added as per above. Monitor vitals closely. (3) Type II diabetes mellitus Current Visit: Yes Status: Acute Assessment and Plan: Continue accuchecks and increased to moderate dose SSI QID AC/HS. Consider discharge on metformin and close PCP follow up. (4) DVT prophylaxis Current Visit: Yes Status: Acute Assessment and Plan: Start lovenox 40 mg SQ QD. - Time Spent with Patient Total time spent is greater than 50% in coordination of care (as documented) at patient's floor/unit and/or counseling patient: less than 15 minutes Plan of Care Discussed with: patient (Nurse) Internal Medicine: Result - Labs CBC & Chem 7: 10/04/17 15:50 10/05/17 00:09 Labs: Cardiac Enzymes 10/05/17 Range/Units 12:15 Troponin I 13.04 H* (< 0.04) ng/mL - ABG Interpretation ABG results: PT/INR, D-dimer PT 11.5 Seconds (9.4-12.1) 10/04/17 15:50 - Impressions Impressions Echocardiogram 10/05/17 18:52 Impressions: LVEF 60-65%. Normal right ventricular structure and function. Mild left ventricular diastolic dysfunction. Mild mitral regurgitation. No pulmonary hypertension. Left Ventricular Wall Motion: Rest Echo Findings All wall segments showed normal motion. Findings: Study Quality * Technically adequate exam. ECG Findings * Normal sinus rhythm. Right Ventricle * Normal right ventricular structure and function. Left Ventricle * LVEF 60-65%. * Mild left ventricular diastolic dysfunction. * Normal LV chamber size and wall thickness. Left Atrium * Normal left atrial size. Right Atrium * Normal right atrial size. Aortic Valve * No aortic regurgitation. * Trileaflet aortic valve. * No aortic stenosis. Mitral Valve * Normal mitral valve structure. * No mitral stenosis. * Mild mitral regurgitation. Tricuspid Valve * Tricuspid valve not well visualized. * Trace tricuspid regurgitation. Pulmonic Valve * Pulmonic valve is not well visualized. * No pulmonic stenosis. * No pulmonic regurgitation. Pulmonary Artery * Pulmonary artery not well visualized. Aorta * Normally sized aortic root. Pericardium * There is no pericardial effusion present. Interatrial Septum * No evidence of PFO by color Doppler. IVC * The IVC is not dilated. * < 50% respiratory change. 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
[2017-10-05] MEDS ORDERED: Acetaminophen 325 MG TABLET PO PRN (18:39)
[2017-10-05] MEDS: *HR* Ticagrelor 90 MG TABLET PO SCH (20:35)
[2017-10-05] MEDS ORDERED: Insulin LISPRO 300 UNITS/3 ML VIAL SQ SCH (21:00)
[2017-10-06 05:03] LABS: Basophils % 0.2 %; Eosinophils # 0.1 K/mcL (0.0-0.6); Eosinophils % 0.9 %; Hematocrit 41.9 % (37.5-50.1); Immature Granulocytes % 0.3 % (0-4); Lymphocytes # 1.6 K/mcL (0.6-4.6); Lymphocytes % 18.7 %; Mean Corpuscular HGB Conc 35.6 g/dL (31.6-35.5); Mean Corpuscular Volume 87.3 fL (83.0-100.0); Mean Platelet Volume 9.7 fL (9.4-12.4); Monocytes # 0.9 K/mcL (0.0-1.3); Monocytes % 9.9 %; Platelet Count 130 K/mcL (140-400); Red Cell Distribution Width 12.5 % (11.5-14.5)
[2017-10-06 05:04] LABS: Hemoglobin 14.9 g/dL (12.9-16.9)
[2017-10-06 05:20] LABS: BUN/Creatinine Ratio 23 (6-26); Blood Urea Nitrogen 15 mg/dL (6-20); Calcium 8.9 mg/dL (8.6-10.3); Carbon Dioxide 22 mEq/L (23-29); Chloride 105 mEq/L (98-107); Glucose 137 mg/dL (70-105); Osmolality,Calculated 285 (280-300); Potassium 3.9 mEq/L (3.5-5.1); Sodium 136 mEq/L (136-145); eGFR For Non-African Americans > 60 (> 60)
[2017-10-06] MEDS ORDERED: *HR* Enoxaparin 40 MG/0.4 ML SYRINGE SQ SCH (06:00)
[2017-10-06] MEDS ORDERED: Nitroglycerin 0.4 MG TAB.SUBL SL PRN (09:50)
[2017-10-06] MEDS: *HR* Ticagrelor 90 MG TABLET PO SCH (09:52)
[2017-10-06] MEDS: Aspirin 81 MG TAB.CHEW PO SCH (09:52)
[2017-10-06] MEDS: Insulin LISPRO 300 UNITS/3 ML VIAL SQ SCH ×2 (09:54→12:53)
--- NOTE | 2017-10-06 09:55 | Cardiology Progress Note ---
Date of Encounter: 10/06/17 Time of Encounter: 09:50 Assessment and Plan (1) NSTEMI (non-ST elevated myocardial infarction) Current Visit: Yes Status: Acute Per Cardiology: Peak troponin 13.04. Status post catheterization and patient underwent drug- eluting stent to mid RCA 70% and drug-eluting stent to distal RCA 99% lesions. Has remaining mid LAD 70%, distal LAD 90% with recs for outpatient staging if clinical stable. Has remaining distal circumflex 50% lesion. Will have patient ambulate in hallway-- assuming chest pain-free, cardiology will sign off and follow up in outpatient setting. Echo showed EF preserved at 60-65%. On aspirin, statin, beta gina, Brilinta. Will add SL nitroglycerin pills, instructions on how to utilize provided. Post procedure care education provided. All questions answered. Discussion w patient/family: The assessment and plan as outlined above was discussed with the patient who expressed understanding and agreement. All questions were answered. Thank you for involving us in the care of your patient. Please call with any questions. Objective Vital Signs, Last 4 Hours Temp Pulse Resp BP Pulse Ox 10/06/17 06:44 98.0 F 65 15 129/76 95 General: Conversant, No Apparent Distress HEENT: Atraumatic, Normocephaly, Mucus Membranes Moist Neck: No JVD, Normal carotid pulses Cardiac: Reg Rate and Rhythm, Normal S1 and S2, No Murmur Lungs: Normal Breath Sounds, No Wheeze, Rales, Rhonchi Neuro: Alert and responsive, No focal deficits noted Abdomen: Soft, Non-Tender Skin: No rashes noted on visualized skin, Other (Right groin site dry and intact , no hematoma, and very mild ecchymosis, no bleeding, right PT and DP pulses are 2+ palpable) Musculoskeletal: No Chest Wall Tenderness Extremities: No Clubbing, No Cyanosis, No Edema, Normal Pulses Results 10/06/17 04:00 10/06/17 04:00 Lab Results Laboratory Tests 10/05/17 10/05/17 10/06/17 00:09 12:15 04:00 Hgb 14.9 D Hct 41.9 Creatinine Est GFR (Non-Af Amer) Troponin I 13.04 H* LDL Cholesterol, Calc 76 10/06/17 04:00 Hgb Hct Creatinine 0.64 L Est GFR (Non-Af Amer) > 60 Troponin I LDL Cholesterol, Calc Impressions Echocardiogram 10/05/17 18:52 Impressions: LVEF 60-65%. Normal right ventricular structure and function. Mild left ventricular diastolic dysfunction. Mild mitral regurgitation. No pulmonary hypertension. Left Ventricular Wall Motion: Rest Echo Findings All wall segments showed normal motion. Findings: Study Quality * Technically adequate exam. ECG Findings * Normal sinus rhythm. Right Ventricle * Normal right ventricular structure and function. Left Ventricle * LVEF 60-65%. * Mild left ventricular diastolic dysfunction. * Normal LV chamber size and wall thickness. Left Atrium * Normal left atrial size. Right Atrium * Normal right atrial size. Aortic Valve * No aortic regurgitation. * Trileaflet aortic valve. * No aortic stenosis. Mitral Valve * Normal mitral valve structure. * No mitral stenosis. * Mild mitral regurgitation. Tricuspid Valve * Tricuspid valve not well visualized. * Trace tricuspid regurgitation. Pulmonic Valve * Pulmonic valve is not well visualized. * No pulmonic stenosis. * No pulmonic regurgitation. Pulmonary Artery * Pulmonary artery not well visualized. Aorta * Normally sized aortic root. Pericardium * There is no pericardial effusion present. Interatrial Septum * No evidence of PFO by color Doppler. IVC * The IVC is not dilated. * < 50% respiratory change. Active Medications Acetaminophen (Tylenol) 650 mg PO Q6HR PRN PRN Reason: Fever Stop: 04/06/18 18:40 Last Admin: 10/05/17 18:48 Dose: 650 mg Aspirin (Aspirin) 81 mg PO DAILY [facility] Stop: 04/06/18 09:01 Last Admin: 10/05/17 09:05 Dose: 81 mg Atorvastatin Calcium (Lipitor) 80 mg PO HS [facility] Stop: 04/07/18 21:01 Dextrose/Water (Dextrose 50% (Syg)) 25 ml IVP AD PRN PRN Reason: Hypoglycemia Stop: 04/05/18 19:42 Enoxaparin Sodium (Lovenox) 40 mg SQ 0600 [facility] PRN Reason: Protocol Stop: 04/07/18 06:01 Last Admin: 10/06/17 05:59 Dose: 40 mg Glucagon (Glucagen) 1 mg IM ONCE PRN PRN Reason: Hypoglycemia Stop: 04/05/18 19:42 Glucose (Gluctose) 15 gm PO ONCE PRN PRN Reason: Hypoglycemia Stop: 04/05/18 19:42 Glucose (Gluctose) 30 gm PO ONCE PRN PRN Reason: Hypoglycemia Stop: 04/05/18 19:42 Dextrose (Dextrose 5%) 1,000 mls @ 100 mls/hr IVC .Q10H PRN PRN Reason: HYPOGLYCEMIA Stop: 04/05/18 19:42 Insulin Human Lispro (Humalog) 0 units SQ TIDAC [facility] PRN Reason: Protocol Stop: 04/06/18 18:16 Last Admin: 10/05/17 18:49 Dose: 10 units Insulin Human Lispro (Humalog) 0 units SQ HS [facility] PRN Reason: Protocol Stop: 04/06/18 21:01 Last Admin: 10/05/17 20:35 Dose: 4 units Metoprolol Tartrate (Lopressor) 12.5 mg PO BID [facility] Stop: 04/06/18 09:31 Last Admin: 10/05/17 20:35 Dose: 12.5 mg Naloxone HCl (Narcan) 0.4 mg IVP Q2MIN PRN PRN Reason: SEE COMMENTS Stop: 04/05/18 18:12 Nitroglycerin (Nitroglycerin) 0.4 mg SL Q5MIN PRN PRN Reason: Chest Pain Stop: 04/07/18 09:51 Ticagrelor (Brilinta) 90 mg PO BID [facility] Stop: 04/06/18 21:01 Last Admin: 10/05/17 20:35 Dose: 90 mg - Imaging and Cardiology Echo: report reviewed Cardiac cath: report reviewed - VTE Documentation of Mechanical Device: Intermittent pneumatic compression device Consult Discharge Plan - Plan Referrals: [facility] [Primary Care Provider] -
--- NOTE | 2017-10-06 10:21 | Discharge Summary ---
- NOTES TO OUTPATIENT PROVIDER Notes to Outpatient Provider: Follow up with PCP in 2-3 days after discharge. Recheck BMP and CBC at that time. Follow up with cardiology as directed. Orders not resulted at time of discharge: Pending orders 10/05/17 11:36 ECG 12 lead ECG [ECG] Routine 10/06/17 07:00 ECG 12 lead ECG [ECG] Routine Date of Encounter: 10/06/17 Time of Encounter: 10:20 - Discharge Diagnosis (1) NSTEMI (non-ST elevated myocardial infarction) Priority: Primary Status: Acute (2) Pre-hypertension Priority: Secondary Status: Acute (3) Type II diabetes mellitus Priority: Secondary Status: Acute Qualifiers: Diabetes mellitus chcf insulin use: without chcf use Diabetes mellitus complication status: with unspecified complications Qualified Code(s) : E11.8 - Type 2 diabetes mellitus with unspecified complications (4) DVT prophylaxis Priority: Secondary Status: Acute Hospital course: Mr. Moran is a 56 year old male admitted for chest pain secondary to NSTEMI. Patient was admitted to general medical floor with telemetry. He was started on heparin and nitro drips. Troponin peaked at 13.04. Cardiology was consulted. He was taken for LHC with drug-eluting stent to mid RCA 70% and drug -eluting stent to distal RCA 99% lesions. He has remaining mid LAD 70%, distal LAD 90% with recs for outpatient staging if clinical stable. He remained chest pain free after LHC. ECHO showed preserved EF 60-65%. He will be discharged home on aspirin, brilinta, statin, beta gina, and PRN nitro. He will be discharged on metformin for elevated blood glucose. DM Type II can be further worked up and managed by PCP. He will follow up with PCP on 10/11/17. BMP and CBC can be rechecked at that time. Patient has met maximum benefit of this hospitalization and will be discharged home in stable condition. Discharge discussed with: patient, nurse - Time Spent with Patient Total time spent providing and/or coordinating discharge services: Greater than 30 minutes - Discharge Medications Prescriptions: Nitroglycerin 0.4 mg SL Q5MIN PRN #10 tab.subl PRN Reason: Chest Pain Aspirin 81 mg PO DAILY 7 Days #7 tab.chew Atorvastatin [Lipitor] 80 mg PO HS 7 Days #7 tablet metFORMIN [Glucophage] 500 mg PO BIDWM 7 Days #14 tablet Metoprolol [Lopressor] 12.5 mg PO BID 7 Days #14 tablet Ticagrelor [Brilinta] 90 mg PO BID 7 Days #14 tablet Home Medications: Aspirin 81 mg PO DAILY 7 Days #7 tab.chew 10/06/17 [Rx] Atorvastatin [Lipitor] 80 mg PO HS 7 Days #7 tablet 10/06/17 [Rx] Metoprolol [Lopressor] 12.5 mg PO BID 7 Days #14 tablet 10/06/17 [Rx] Nitroglycerin 0.4 mg SL Q5MIN PRN #10 tab.subl 10/06/17 [Rx] Ticagrelor [Brilinta] 90 mg PO BID 7 Days #14 tablet 10/06/17 [Rx] metFORMIN [Glucophage] 500 mg PO BIDWM 7 Days #14 tablet 10/06/17 [Rx] Allergies/Adverse Reactions: 3 Allergy/AdvReac Type Severity Reaction Status Date / Time No Known Allergies Allergy Verified 10/04/17 15:29 Date of admission: 10/05/17 09:53 Primary care physician: PCP [facility] Consults: Cardiology 10/05/17 11:36 Consult to Cardiac Rehabilitation-Phase1 [CONS] Routine Comment: Reason for Consult: AMI Call Completed: Yes Consult to Nurse Navigator [CONS] Routine Comment: 10/05/17 13:35 Consult to Chalk Cutter [CONS] Routine Reason for SW Consult: Pt came from [place] ER, may have needs with getting new medications on d/c. Discharging clinician: Miguel Angel Flores Anticipated date of discharge: 10/06/17 - Constitutional Vitals: Temp Pulse Resp BP Pulse Ox 98.0 F 65 15 129/76 95 10/06/17 06:44 10/06/17 06:44 10/06/17 06:44 10/06/17 06:44 10/06/17 06:44 General appearance: Present: cooperative, A&O X 3, pleasant, no acute distress, obese, answers questions appropriately - Respiratory Respiratory exam: Present: CTAB. Absent: accessory muscle use, rales, rhonchi, wheezes Additional comments: Normal WOB - Cardiovascular Cardiovascular exam: Present: RRR, +S1, +S2. Absent: diastolic murmur, gallop, rubs, systolic murmur Additional comments: No BLE edema - GI/Abdominal GI/Abdominal exam: Present: normal bowel sounds, soft. Absent: distended, hepatomegaly, mass, splenomegaly, tenderness - Psychiatric Psychiatric exam: Present: normal affect, normal mood. Absent: agitated, anxious, depressed - Skin Skin exam: Present: dry, intact, warm. Absent: cyanosis, erythema, rash - Patient Status Disposition: Home, Self-Care Condition: Good Functional capacity at discharge: independent ambulation Overall status at discharge: patient is progressing back to baseline - Discharge Instructions Follow [facility] With: [facility] [Primary Care Provider] - Additional Instructions: Follow up with PCP in 2-3 days after discharge. Recheck BMP and CBC at that time. Follow up with cardiology as directed. - Diet and Activity Activity: as per the cardiac rehab, resume usual activities as tolerated Diet: diabetic diet, low fat, low cholesterol, low salt diet, other (Cardiac Diet)
[2017-10-06 10:58] VITALS: BP 103/93
== END 2017-10-06 14:25 | disposition home or self-care (01) | DRG 247 ==
LOC: 2NENU 15:29 → EMEROO 15:29 → 2NENU 18:04
PROVIDERS: ADMIT Internal Medicine; ATTEND Internal Medicine